=== PATIENT | female | born 1965 | race Caucasian/White ===

== ENCOUNTER 2024-08-31 06:16 | Day surgery (SDC) | payer BC, OTHER ==
[2024-08-31] MEDS: Lactated Ringers 1,000 ML IV SCH (07:06)
[2024-08-31] MEDS ORDERED: Propofol 200 MG/20 ML SDV ONE ×2 (07:07→07:56)
[2024-08-31] MEDS ORDERED: fentaNYL 100 MCG/2 ML SDV ONE (07:08)
[2024-08-31] MEDS ORDERED: Midazolam 1 MG/ML 2 ML SDV ONE (07:08)
[2024-08-31 08:17] VITALS: PULSE 61
[2024-08-31 08:32] VITALS: BP 122/77
== END 2024-08-31 08:40 | disposition home or self-care (01) ==
LOC: JP.SDS 06:16
PROVIDERS: ATTEND Family Medicine
DX: Z12.11 Encounter for screening for malignant neoplasm of colon (principal); D12.4 Benign neoplasm of descending colon; K57.30 Diverticulosis of large intestine without perforation or abscess without bleeding; K64.8 Other hemorrhoids; K64.4 Residual hemorrhoidal skin tags; E03.9 Hypothyroidism, unspecified; K21.9 Gastro-esophageal reflux disease without esophagitis; E78.5 Hyperlipidemia, unspecified
CPT/HCPCS: 00811-QZ; 45380; 88305; J2250; J2704; J3010; J7120

== ENCOUNTER 2024-09-01 03:38 | Emergency (ER) | payer BC, OTHER ==
[2024-09-01] MEDS ORDERED: Naloxone 0.4 MG/ML SDV IVPUSH PRN (03:59)
[2024-09-01 04:02] LABS: BASOPHILS ABSOLUTE AUTO 0.07 K/uL (0.00-0.10); BASOPHILS PERCENT AUTO 0.9 % (0.1-1.3); EOSINOPHILS ABSOLUTE AUTO 0.25 K/uL (0.00-0.40); EOSINOPHILS PERCENT AUTO 3.3 % (0.0-5.4); HEMATOCRIT 44.3 % (34.3-46.0); HEMOGLOBIN 15.5 g/dL (11.2-15.5); IMMATURE GRAN ABSOLUTE AUTO 0.03 K/uL (0.00-0.23); IMMATURE GRAN PERCENT AUTO 0.4 % (0.0-0.7); LYMPHOCYTES ABSOLUTE AUTO 2.13 K/uL (0.8-3.3); LYMPHOCYTES PERCENT AUTO 28.5 % (11.4-47.7); MEAN CORPUSCULAR HEMOGLOBIN 32.1 pg (31.6-35.5); MEAN CORPUSCULAR VOLUME 91.7 fL (81.4-99.0); MONOCYTES ABSOLUTE AUTO 0.44 K/uL (0.20-0.90); MONOCYTES PERCENT AUTO 5.9 % (3.3-12.6); NEUTROPHILS ABSOLUTE AUTO 4.55 K/uL (1.0-7.6); PLATELET COUNT,PLT 221 K/uL (130-375); RED BLOOD CELL COUNT 4.83 M/uL (3.77-5.24); WHITE BLOOD CELL COUNT,WBC 7.5 K/uL (3.2-11.0)
[2024-09-01] MEDS: Morphine 4 MG/ML Syringe IVPUSH ONE (04:24)
[2024-09-01 04:25] LABS: ANION GAP 8.1 mmol/L (5.0-14.0); BLOOD UREA NITROGEN,BUN 17 mg/dL (7-18); CARBON DIOXIDE,CO2 29 mmol/L (21-32); CHLORIDE,CL 106 mmol/L (100-108); CREATININE 1.2 mg/dL (0.6-1.0); ESTIMATED GFR 52 mL/min (>60); GLUCOSE RANDOM 106 mg/dL (74-106); POTASSIUM,K 4.1 mmol/L (3.6-5.2); SODIUM,NA 143 mmol/L (140-148); TROPONIN I HIGH SENSITIVITY 4.7 pg/mL (<=60.3)
[2024-09-01] MEDS: Ondansetron 4 MG/2 ML SDV IVPUSH ONE (04:28)
[2024-09-01] MEDS: Alum Hydrox/Mag Hydrox/Simeth 15 ML, Lidocaine 2% 15 ML PO ONE (05:02)
[2024-09-01] MEDS: Methocarbamol 500 MG Tab PO ONE (06:40)
[2024-09-01 08:02] VITALS: BP 160/78; PULSE 64
== END 2024-09-01 07:55 | disposition home or self-care (01) ==
LOC: JP.ED 03:38
DX: R07.89 Other chest pain (principal); E03.9 Hypothyroidism, unspecified; M19.90 Unspecified osteoarthritis, unspecified site; Z79.82 Long term (current) use of aspirin; Z79.899 Other long term (current) drug therapy; Z88.8 Allergy status to other drugs, medicaments and biological substances
CPT/HCPCS: 36415; 71045; 80048; 84484; 85025; 85379; 93005; 96374; 96375; 99285; A9270; J2270; J2405